=== PATIENT | male | born 1940 | race Caucasian/White ===

== ENCOUNTER 2016-12-11 08:56 | Outpatient (CLI) | payer MEDICARE, BC ==
--- NOTE | 2016-12-11 10:44 | RAD ---
RIGHT HIP 2 VIEWS: HISTORY: Right hip pain. FINDINGS: Thee is a moderate degree of joint space narrowing, osteophytosis, and subchondral sclerosis. Femor al head contour is maintained. No acute fracture or dislocation are evident. A thin calcific densi ty projects obliquely over the right lower quadrant and pelvis. IMPRESSION: 1. Osteoarthritis right hip. 2. Thin calcific density projecting over the right lower quadrant and pelvis may represent an enter ic object or an embedded foreign body. POS: LILY
--- NOTE | 2016-12-11 10:45 | RAD ---
LUMBAR SPINE SERIES 5 VIEWS: HISTORY: Low back pain since Fito. FINDINGS: The vertebral bodies are normal in height. There is some mild disk narrowing at L3-4, moderate disk narrowing at L4-5, and severe disk narrowing at L5-S1 with a spondylolisthesis of L5 on S1 which is approximately 7-8 mm. There are moderate degenerative facet changes. Pedicles are intact. 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 POS: OFF
== END 2016-12-11 08:57 | disposition home or self-care (01) ==
LOC: MADLAB 08:56
PROVIDERS: ATTEND Physician Assistant
DX: M25.551 Pain in right hip (principal); M16.11 Unilateral primary osteoarthritis, right hip
CPT/HCPCS: 72110

== ENCOUNTER 2018-02-03 09:54 | Outpatient (CLI) | payer MEDICARE, BC ==
--- NOTE | 2018-02-03 10:49 | RAD ---
PA AND LATERAL VIEWS CHEST: HISTORY: Hypertension. FINDINGS: Comparison is made to the exam of 06/30/2014. The heart size is normal. The lungs are expanded without focal areas of consolidation, pneumothorax, or pleural effusions. There is an old left rib fracture. Degenerative changes are present in the s pine. IMPRESSION: No radiographic evidence of acute cardiopulmonary process. POS: H
== END 2018-02-03 09:55 | disposition home or self-care (01) ==
LOC: MADRAD 09:54
PROVIDERS: ATTEND Obstetrics & Gynecology
DX: I10 Essential (primary) hypertension (principal)
CPT/HCPCS: 71046

== ENCOUNTER 2020-10-08 15:29 | Emergency (ER) | payer MEDICARE, BC ==
[2020-10-08] MEDS ORDERED: Boostrix 0.5 ML (Tdap) VIAL ONE (17:18)
== END 2020-10-08 17:37 | disposition home or self-care (01) ==
LOC: MADERS 15:29
DX: S30.0XXA Contusion of lower back and pelvis, initial encounter (principal); S00.83XA Contusion of other part of head, initial encounter; R26.9 Unspecified abnormalities of gait and mobility; J44.9 Chronic obstructive pulmonary disease, unspecified; I10 Essential (primary) hypertension; E78.5 Hyperlipidemia, unspecified; Z85.46 Personal history of malignant neoplasm of prostate; Z79.899 Other long term (current) drug therapy; W17.89XA Other fall from one level to another, initial encounter
CPT/HCPCS: 70450; 72125; 72131; 90471; 90715